=== PATIENT | male | born 1990 | race Caucasian/White ===

== ENCOUNTER 2023-08-30 14:03 | Inpatient (IN) | payer OTHER ==
[~2023-08-30] VITALS: Ht 182.9 cm; Wt 113.7 kg
[2023-08-30 14:45] LABS: BASOPHILS ABSOLUTE AUTO 0.05 K/mm3 (0.00-0.23); BASOPHILS PERCENT AUTO 0 % (0-2); EOSINOPHILS ABSOLUTE AUTO 0.35 K/mm3 (0.00-0.68); EOSINOPHILS PERCENT AUTO 2 % (0-6); Hematocrit 22.6 % (37.0-53.0); Hemoglobin 7.8 g/dL (13.5-17.5); IMMATURE GRAN ABSOLUTE AUTO 0.22 K/mm3 (0.00-0.10); IMMATURE GRAN PERCENT AUTO 1 % (0-1); LYMPHOCYTES ABSOLUTE AUTO 2.68 K/mm3 (0.84-5.20); LYMPHOCYTES PERCENT AUTO 15 % (21-46); MONOCYTES ABSOLUTE AUTO 1.54 K/mm3 (0.16-1.47); MONOCYTES PERCENT AUTO 9 % (4-13); Mean Corpuscular HGB 37.3 pg (26.0-34.0); Mean Corpuscular HGB Conc 34.5 g/dL (31.5-36.5); Mean Corpuscular Volume 108 fL (80-100); Mean Platelet Volume 9.3 fL (9.1-12.4); NEUTROPHILS ABSOLUTE AUTO 13.26 K/mm3 (1.96-9.15); NEUTROPHILS PERCENT AUTO 73 % (41-73); NRBC ABSOLUTE 0.02 K/mm3 (0.00-0.02); NRBC Auto 0.1 /100 WBC (0.0-0.2); Platelet Count 156 K/mm3 (150-400); RDW Coefficient Variation 16.2 % (11.7-14.2); RDW Standard Deviation 65.1 fL (35.1-46.3); Red Blood Cell Count 2.09 M/mm3 (4.30-5.90)
[2023-08-30 15:10] LABS: Albumin, Blood 1.9 g/dL (3.4-5.0); Albumin/Globulin Ratio 0.4 (0.8-1.8); Bilirubin, Direct 11.8 mg/dL (0.0-0.3); Bilirubin, Indirect 7.4 mg/dL (0.1-0.7); Bilirubin, Total 19.2 mg/dL (0.1-1.0); Calcium, Blood 7.6 mg/dL (8.5-10.1); Creatinine, Blood 0.63 mg/dL (0.60-1.20); Globulin, Blood 4.6 g/dL (2.2-4.0); Magnesium, Blood 2.4 mg/dL (1.6-2.4); Potassium, Blood 2.7 mmol/L (3.5-5.5); Total Protein, Blood 6.5 g/dL (6.4-8.2)
[2023-08-30 15:19] LABS: International Normalized Ratio 1.73; Prothrombin Time Results 17.6 Sec (9.7-11.5)
[2023-08-30 18:23] VITALS: BP 122/67
--- NOTE | 2023-08-30 19:03 | NUR ---
ADMISSION NOTE: PATIENT ARRIVES TO ROOM AT 1805 FROM ER FOR DX'S OF ALCOHOLIC HEPATITIS. PATIENT A/OX4, ANSWER TO QUESTIONS APPROPRIATELY, PLEASANT AND COOPERATIVE c CARE PROVIDED. PATIENT ORIENTATED TO ROOM AND CALL SYSTEM. ADMISSION, MEDRIC AND 2 RN SKIN ASSESSMENT COMPLETED. PATIENT APPEARS JAUNDICED IN SKIN AND SCLERA. PATIENT ABDOMEN IS VERY DISTENDED, FIRM, HYPOACTIVE BT TO AUSCULTATION AND REPORTS TENDERNESS/PAIN ON MILD PALPATION. PATIENT REPORTS HE HARDLY URINATE AND IF HE DOES VERY MINIMAL AND YELLOW TO ORANGE COLOR. NOTED PLUS 2 EDEMA TO HIPS AND PLUS 3 PITTING EDEMA TO BLE'S/FEET. PATIENT ON HEPATIC DIET. PATIENT DENIES CP/PRESSURE, N/V AND DIZZINESS. REPORTS SOB c REPOSITIONING AND AMBULATIONS. VITAL SIGNS REVIEWED. PIV TO R FOREARM INFUSING POTASSIUM CHLORIDE. CALL LIGHT IN REACH.
[2023-08-30 21:12] VITALS: BP 113/67
[2023-08-30 23:36] LABS: BASOPHILS ABSOLUTE AUTO 0.04 K/mm3 (0.00-0.23); BASOPHILS PERCENT AUTO 0 % (0-2); EOSINOPHILS ABSOLUTE AUTO 0.43 K/mm3 (0.00-0.68); EOSINOPHILS PERCENT AUTO 2 % (0-6); Hematocrit 20.3 % (37.0-53.0); IMMATURE GRAN ABSOLUTE AUTO 0.28 K/mm3 (0.00-0.10); IMMATURE GRAN PERCENT AUTO 1 % (0-1); LYMPHOCYTES ABSOLUTE AUTO 3.22 K/mm3 (0.84-5.20); LYMPHOCYTES PERCENT AUTO 16 % (21-46); MONOCYTES ABSOLUTE AUTO 2.01 K/mm3 (0.16-1.47); MONOCYTES PERCENT AUTO 10 % (4-13); Mean Corpuscular HGB 37.4 pg (26.0-34.0); Mean Corpuscular HGB Conc 34.5 g/dL (31.5-36.5); Mean Corpuscular Volume 109 fL (80-100); Mean Platelet Volume 9.7 fL (9.1-12.4); NEUTROPHILS ABSOLUTE AUTO 13.85 K/mm3 (1.96-9.15); NEUTROPHILS PERCENT AUTO 70 % (41-73); NRBC ABSOLUTE 0.02 K/mm3 (0.00-0.02); NRBC Auto 0.1 /100 WBC (0.0-0.2); Platelet Count 150 K/mm3 (150-400); RDW Coefficient Variation 16.6 % (11.7-14.2); RDW Standard Deviation 65.7 fL (35.1-46.3); Red Blood Cell Count 1.87 M/mm3 (4.30-5.90); White Blood Cell Count 19.83 K/mm3 (4.00-11.30)
[2023-08-31] VITALS (24 sets, daily range): BP systolic 99–118; BP diastolic 41–88
[2023-08-31 01:23] LABS: Source, Urine Clean Catch
[2023-08-31 01:30] LABS: Appearance, Urine Turbid (Clear); Bilirubin, Urine 3+ (Neg); Blood, Urine 2+ (Neg); Color, Urine Amber (P-Yellow); Glucose Qualitative, Urine Neg (Neg); Ketones, Urine 1+ (Neg); Leukocyte Esterase, Urine Neg (Neg); Nitrite, Urine Neg (Neg); Protein, Urine 2+ (Neg); Urobilinogen, Urine 4+ (Normal)
[2023-08-31 01:40] LABS: Bacteria Few /hpf; Squamous Epithelial Cells Few /hpf (Few); White Blood Cells, Urine 0-2 /hpf (0-5)
[2023-08-31 01:41] LABS: Amorphous Mod (0-Heavy); Other Crystals Few /hpf
[2023-08-31 01:44] LABS: U Amphetamine Screen Not Detected; U Barbituate Screen Not Detected; U Benzodiazapine Screen Not Detected; U Buprenorphine Screen Not Detected; U Cannabinoids Screen DETECTED; U Cocaine Screen Not Detected; U Methadone Screen Not Detected; U Methamphetamine Screen Not Detected; U Opiates Screen Not Detected; U Oxycodone Screen Not Detected; U Phencyclidine Screen Not Detected
--- NOTE | 2023-08-31 05:43 | NUR ---
SHIFT SUMMARY *SHAHNAZ* IS ALERT AND FULLY ORIENTED, PLEASANT AND COOPERATIVE WITH CARE. PT IS ABLE TO AMBULATE WITH ONLY SUPERVISION, HE DENIES C/P PRESSURE AND SOB EVERY TIME ASKED THIS SHIFT. PT IS JAUNDICED. PT HAD A BOWEL MOVEMENT WITH COPIUS BRIGHT RED BLOOD, HE CLAIMS THIS IS THE FIRST BLOODY STOOL HE HAS HAD. PTS HGB WAS AT 7.8 FROM DAYSHIFT LABS. HOSPITALIST CONTACTED, ORDER RECIEVED FOR 1U PRBC AND CBC, HGB HAD DROPPED TO 7.0, CONSENT TO RECIEVE BLOOD SIGNED BY PT, RBCS INFUSED W/O ISSUE, VSS REMAIN STABLE. PT RESTING IN BED AT A LOW POSITION WITH THE CALL LIGHT IN REACH.
[2023-08-31 07:22] LABS: Hemoglobin 8.2 g/dL (13.5-17.5); Mean Corpuscular HGB 35.8 pg (26.0-34.0); Mean Corpuscular HGB Conc 34.2 g/dL (31.5-36.5); Mean Corpuscular Volume 105 fL (80-100); Mean Platelet Volume 9.4 fL (9.1-12.4); NRBC ABSOLUTE 0.02 K/mm3 (0.00-0.02); NRBC Auto 0.1 /100 WBC (0.0-0.2); Platelet Count 150 K/mm3 (150-400); RDW Coefficient Variation 19.7 % (11.7-14.2); RDW Standard Deviation 73.4 fL (35.1-46.3); Red Blood Cell Count 2.29 M/mm3 (4.30-5.90); White Blood Cell Count 20.38 K/mm3 (4.00-11.30)
--- NOTE | 2023-08-31 07:50 | NUR ---
BLOODY STOOLS PT HAD SECOND BLOODY STOOL DURING END OF SHIFT REPORT, HE STATES IT WAS MORE BLOOD THAN THE FIRST BM OF THE SHIFT BUT FLUSHED IT BEFORE IT COULD BE SEEN. MORNING HGB UP TO 8.2 FROM 7.0 AFTER RECIEVING PRBC.
[2023-08-31 08:04] LABS: Albumin, Blood 1.8 g/dL (3.4-5.0); Albumin/Globulin Ratio 0.4 (0.8-1.8); Bilirubin, Total 19.7 mg/dL (0.1-1.0); Bun/Creatinine Ratio 21.2 (12.0-20.0); Calcium, Blood 7.4 mg/dL (8.5-10.1); Creatinine, Blood 0.71 mg/dL (0.60-1.20); Globulin, Blood 4.4 g/dL (2.2-4.0); Magnesium, Blood 2.4 mg/dL (1.6-2.4); Percent Saturation 92.1 % (20.0-50.0); Phosphorus, Blood 3.4 mg/dL (2.5-4.9); Potassium, Blood 3.4 mmol/L (3.5-5.5); Total Protein, Blood 6.2 g/dL (6.4-8.2)
[2023-08-31 12:35] LABS: Automated BF WBC Count 0.166 K/mm3 (0-999)
[2023-08-31 12:42] LABS: Body Fluid WBC Count 166 /mm3 (0-999)
[2023-08-31 12:58] LABS: Albumin, Body Fluid 0.5 g/dL
[2023-08-31 13:21] LABS: RBC Count, Body Fluid 72 /mm3 (0-0)
--- NOTE | 2023-08-31 13:21 | NUR ---
SHAHNAZ ARRIVES FROM MEDICAL FLOOR VIA WHEELCHAIR, IV POLE WITH PANTOPRAZOLE AND OCTREOTIDE INFUSING. ORDERS FOR FURTHER IV MEDICATIONS, INCLUDING FOLIC ACID, ALBUMIN AND ROCEPHIN WITHOUT ACCESS. WILL LOOK FOR ACCESS AND ATTEMPT TO START ADDITIONAL MEDS. PT IS JAUNDICED, EDEMATOUS TO KNEES BILATERALLY STATES IT HAS BEEN CHRONIC FOR LAST COUPLE YEARS. PT STATES ABDOMEN IS BETTER POST PARACEN- TESIS. BREATHING EVEN, UNLABORED, LUNGS CLEAR, RA. BP STABLE, HEART RATE 90S. PT IS NPO AND UNHAPPY ABOUT THAT. ABLE TO MOVE ALL EXTREMITIES AND REPOSITION COMFORTABLE. STATES N/T ABOUT THE LOWER EXTREMITIES.
[2023-08-31 13:22] LABS: Appearance, Body Fluid Clear (Clear); Color, Body Fluid Yellow (None-Yellow)
[2023-08-31 13:29] LABS: Total Cell Count, Body Fluid 100
[2023-08-31 13:48] LABS: Hematocrit 20.9 % (37.0-53.0); Hemoglobin 7.5 g/dL (13.5-17.5)
--- NOTE | 2023-08-31 16:03 | NUR ---
PT TRANSFERRED TO ICU6 AT 1300, WHEELCHAIR TRANSFER, PT STANDS AND MOVES SBA. HAS NO SYMPTOMS OF DIZZINESS OR WEAKNESS. HAD BRIGHT RED BLOOD IN STOOLS STARTED PM 08/30 2000, 2 MORE AT 08/31 0600, 0900 BRIGHT RED WITH LITTLE FORMED STOOL. STARTED PROTONIX GTT AFTER INITIAL BOLUS, STARTED OCTREOTIDE GTT AFTER BOLUS, GAVE VIT K ORALLY ALL BEFORE TX TO ICU. GAVE REPORT TO [employer]ICAL E[employer]ECTS LINE UP PERSON.
--- NOTE | 2023-08-31 18:06 | NUR ---
SHAHNAZ WAS BROUGHT DOWN FROM MEDICAL FLOOR THIS AFTERNOON FOR CLOSER OBSERVATION REGARDING LGIB. HE HAS NOT HAD ANY STOOL, NO URINE OUTPUT, AND CONTINUES ON OCTREOTIDE AND PANTOPRAZOLE. EFFORTS WERE MADE BY ORGAN PIPE FINISHER TO SEE IF ANY BED WAS AVAILABLE FOR GIB TRANSFER. NOT SUCCESSFUL. PT CONTINUES TO ASK FOR SOME- THING TO EAT/DRINK. HE WAS GIVEN ORAL SWABS MUCH TO HIS DISLIKING. HE IS WEAR- ING HIS SCD'S, EDEMA CONTINUES TO BILATERAL LOWER EXTREMITIES, WHICH PATIENT STATED THAT HAS BEEN ONGOING FOR A COUPLE OF YEARS. HIS ABDOMEN REMAINS SOFT AND LESS TENDER THAN THIS AM, NO S/SX OF BLEEDING FROM THE PUNCTURE SITE FOR THE PARACENTESIS. VITALS HAVE REMAINED STABLE. NO EVIDENCE OF BLEEDING.
[2023-08-31 18:50] LABS: Hematocrit 18.8 % (37.0-53.0); Hemoglobin 6.7 g/dL (13.5-17.5)
--- NOTE | 2023-08-31 19:49 | NUR ---
ASSUMPTION OF CARE NOTE THIS RN ASSUMED CARE AT APPROX 1915. UPON ENTERING ROOM, PATIENT REPORTING NEEDING TO USE RESTROOM. PATIENT TRANSFERRED TO TOILET WITH 1 PERSON ASSIST FOR CORD/DEVICE MANAGEMENT. VSS. BP SOFT, SBP 105. MAP OF 65. ON ROOM AIR, SATS >90%. PATIENT REPORTING DULL LOWER ABDOMINAL PAIN. PATIENT INSTRUCTED TO PULL CORD WHEN FINISHED USING RESTROOM. PCT NOTIFIED THIS RN, THAT THE PATIENT HAD PASSED A BRIGHT RED, LIQUID BOWEL MOVEMENT. LEFT IN TOILET FOR ASSESSMENT, CONFIRMED. PATIENT RESTING IN BED. NO SIGNS OF DISTRESS NOTED, RESPIRATIONS EVEN. JERARDO DANIEL TO CALL . RECEIVED ORDER TO ADMINISTER 2U PRBC's AND RECHECK LABS AT 0100.
--- NOTE | 2023-08-31 20:00 | NUR ---
UPDATE CALL RECIEVED FROM [facility] WITH POSSIBLE BED FOR PATIENT. THIS RN UPDATED HOSPITALIST SILVANA WITH POSSIBLE BED. PER ROSALINDA, D/T GI COVERAGE 09/01/23, PATIENT DOES NOT REQUIRE TRANSFER AT THIS TIME. ORDER RECIEVED FOR GI CONSULT FOR AM. SENIOR MICROSTRATEGY DEVELOPER AWARE.
--- NOTE | 2023-08-31 22:01 | NUR ---
UPDATE FIRST UNIT OF PRBC's STARTED AT APPROX 2145. PATIENT TOLERATING WELL. IS CURRENTLY RESTING, EYES CLOSED, RESPIRATIONS EVEN. NO SIGNS OF DISTRESS NOTED. BP REMAINS SOFT, SBP 90's-110's. MAP >60 AT THIS TIME. REMAINS ON ROOM AIR, SATS >90%. WILL CONTINUE TO MONITOR. CALL LIGHT IN REACH.
[2023-09-01] VITALS (35 sets, daily range): BP systolic 80–119; BP diastolic 46–91
--- NOTE | 2023-09-01 01:14 | NUR ---
UPDATE SECOND UNIT OF PRBC's STARTED AT 0110. PATIENT SLEPT THROUGHOUT FIRST UNIT, TOLERATED WELL. RESPIRATIONS EVEN, NO SIGNS OF DISTRESS NOTED. VS REMAIN STABLE. BP IMPROVING, CURRENT SBP 100's-110's. CALL LIGHT IN REACH.
--- NOTE | 2023-09-01 05:14 | NUR ---
SHIFT SUMMARY NO ACUTE CHANGES SINCE PREVIOUS NOTES. TWO UNITS OF PRBCs INFUSED. PATIENT TOLERATED WELL. LABS DRAWN FROM [facility] AT APPROX 0330, AWAITING RESULTS. PATIENT REMAINS ALERT AND ORIENTED X4. SLEPT THROUGHOUT SHIFT, EASILY AROUSABLE TO VERBAL STIMULI. BP SOFT, SBP 100's-110's. MAP REMAINS >60. REMAINS ON ROOM AIR, SATS >90%. IS A STAND BY ASSIST IN ROOM WITH MOBILITY. WAS ABLE TO VOID 250ML OUT, DARK EVANGELIST COLOR NOTED. NO FURTHER BM's SINCE ASSUMPTION OF CARE. CONTINUES TO REPORT LOWER ABDOMINAL PAIN. REPORTS FLATULENCE. SEE MARÍA RN's NOTE IN ATTEMPTING TO CONSULT GI. OCREOTIDE GTT AND PROTONIX GTT INFUSING PER EMAR. CALL LIGHT IN REACH. WILL REPORT TO ONCKARLEY RN.
--- NOTE | 2023-09-01 05:14 | NUR ---
UPDATE ATTEMPT MADE TO PLACE CONSULT FOR GI. CALL PLACED TO DOCTOR'S LINE. PER DOCTOR'S LINE, NO GI AVAILABLE UNTIL LATER IN THE DAY AND THIS RN WAS RECOMMENDED TO CALL OFFICE AFTER 0800 FOR POSSIBLE CONSULT EARLIER. WILL REPORT THIS TO ONCOMING RN.
[2023-09-01 05:16] LABS: International Normalized Ratio 1.93; Prothrombin Time Results 19.5 Sec (9.7-11.5)
[2023-09-01 05:40] LABS: Albumin, Blood 1.8 g/dL (3.4-5.0); Albumin/Globulin Ratio 0.5 (0.8-1.8); Bilirubin, Total 21.7 mg/dL (0.1-1.0); Bun/Creatinine Ratio 15.7 (12.0-20.0); Calcium, Blood 7.4 mg/dL (8.5-10.1); Creatinine, Blood 1.08 mg/dL (0.60-1.20); Globulin, Blood 3.3 g/dL (2.2-4.0); Potassium, Blood 3.7 mmol/L (3.5-5.5); Total Protein, Blood 5.1 g/dL (6.4-8.2)
[2023-09-01 07:02] LABS: Mean Platelet Volume 9.4 fL (9.1-12.4); Platelet Count 111 K/mm3 (150-400); White Blood Cell Count 18.16 K/mm3 (4.00-11.30)
[2023-09-01 10:56] LABS: Hemoglobin 8.5 g/dL (13.5-17.5)
--- NOTE | 2023-09-01 18:09 | NUR ---
SHIFT SUMMARY PT ALERT AND ORIENTED, PLEASANT AND COOPERATIVE WITH CARE. PT TOLERATING CLEAR LIQUIDS. C/O ABD AND BACK PAIN T/O THE DAY, MEDICATED X 2 WITH PRN FENTANYL WITH ADEQUATE RELIEF. UP TO CHAIR WITH SBA, TOLERATED STANDING AND WALKING WELL, NO DIZZINESS. HAD ONE BRIGHT RED STOOL THIS AM, NONE SINCE, DR STAHL AWARE. THIS EVENING PT C/O PERSISTENT HAND CRAMPING, HOSPITALIST NOTIFED, PENDING ORDERS.
[2023-09-01 19:12] LABS: Hemoglobin 7.4 g/dL (13.5-17.5)
[2023-09-01 19:17] LABS: Hematocrit 21.3 % (37.0-53.0)
[2023-09-01 19:37] LABS: Albumin, Blood 1.7 g/dL (3.4-5.0); Anion Gap 8 mmol/L (6-16); Blood Urea Nitrogen 20 mg/dL (8-24); Bun/Creatinine Ratio 17.1 (12.0-20.0); CO2, Blood 28 mmol/L (21-32); Calcium, Blood 7.4 mg/dL (8.5-10.1); Chloride, Blood 87 mmol/L (98-108); Creatinine, Blood 1.17 mg/dL (0.60-1.20); Glomerular Filtration Rate 84 (60-); Glucose, Blood 120 mg/dL (70-99); Magnesium, Blood 2.3 mg/dL (1.6-2.4); Potassium, Blood 3.4 mmol/L (3.5-5.5); Sodium, Blood 123 mmol/L (136-145)
--- NOTE | 2023-09-01 20:33 | NUR ---
PT ALERT AND ORIENTED X 4, COOPERATIVE WITH CARE, ABLE TO MAKE NEEDS KNOWN, AND TALKATIVE. PT ON RA AND MAINAINING 02 SATURATION ABOVE 92%, PT DENIES SOB. HEAR SR/ST 90'S-100'S, PT DENIES CHEST PAIN/PRESSURE, BP 111/52 & MAP OF 69. PT HAS NOT URINATED OR HAD A BOWEL MOVEMENT DURING SHIFT SO FAR, DAY SHIFT REPORTED BLOODY BOWEL MOVMENT TODAY. PT REPORTS PASSING GAS AND RUQ ABD PAIN. PT HAS 4+ PUTTING EDEMA IN BLE. HE REPORTS NUMBNESS/TINGLING TO BILATERAL UPPER THIGHS. SKIN IS JAUNDICE THROUGHOUT THE BODY. POWERGLIDE TO R UPPER ARM INFUSING PER EMAR. IV TO L FA IS INFUSING PER EMAR. IV TO L AC IS PATENT, FLUSHED AND SALINE LOCKED. PT REPORTS INTERMITTENT CRAMPING OF HIS STOMACH. DR. STAHL IN TO SPEAK WITH PT NOW. PT LAYING IN BED WITH TV AND LIGHTS ON. CALL LIGHT WITHIN REACH.
[2023-09-02] VITALS (15 sets, daily range): BP systolic 92–106; BP diastolic 42–55
[2023-09-02 00:09] LABS: HBSAG SCREEN Negative (Negative); HCV AB Non Reactive (Non Reactive); HEP A AB, IGM Negative (Negative); HEP B CORE AB, IGM Negative (Negative)
[2023-09-02 03:54] LABS: Hemoglobin 7.1 g/dL (13.5-17.5); Mean Platelet Volume 9.9 fL (9.1-12.4); Platelet Count 96 K/mm3 (150-400); White Blood Cell Count 16.73 K/mm3 (4.00-11.30)
[2023-09-02 04:25] LABS: Albumin, Blood 1.6 g/dL (3.4-5.0); Albumin/Globulin Ratio 0.5 (0.8-1.8); Bilirubin, Total 22.4 mg/dL (0.1-1.0); Bun/Creatinine Ratio 14.8 (12.0-20.0); Calcium, Blood 7.5 mg/dL (8.5-10.1); Creatinine, Blood 1.49 mg/dL (0.60-1.20); Globulin, Blood 3.1 g/dL (2.2-4.0); Potassium, Blood 3.5 mmol/L (3.5-5.5); Total Protein, Blood 4.7 g/dL (6.4-8.2)
--- NOTE | 2023-09-02 05:58 | NUR ---
SHIFT SUMMARY PT CONTINUES TO BE ALERT AND ORIENTED X 4, COOPERATIVE [facility] CARE AND ABLE TO MAKE NEEDS KNOWN. PT ON RA AND MAINTAINING 02 SATURATION ABOVE 92%, DENIES SOB. PT'S HR SR 90'S, DENIES CHEST PAIN/PRESSURE, SOFT BP'S WITH MAP AROUND 60-65 MD JORDY NOTIFIED & ORDERS PLACED, MEDICATED PER EMAR. PT CONTINUES TO HAVE RUQ PAIN, MEDICATED PER EMAR. OF NOW, PT IS DUE TO HAVE COLONOSCOPY LATER TODAY. PT URINATED VERY SMALL AMOUNT OF VERY DARK URINE DURING SHIFT, AND NO BOWEL MOVEMENT. IV TO L AC STILL PATENT, FLUSHED AND SALINE LOCKED. IV TO L FA IS STILL INFUSING PER EMAR AND POWERGLIDE TO R UPPER ARM ARE STILL INFUSING PER EMAR. PT IS STILL JAUNDICE THROUGHOUT, 4+ PITTING EDEMA BLE, AND DISTENDED ABDOMEN. PT SLEPT THE MAJORITY OF THE NIGHT. HE IS RESTING IN BED AND CALL LIGHT WITHIN REACH.
[2023-09-02 12:07] LABS: Hemoglobin 7.4 g/dL (13.5-17.5)
[2023-09-02 12:16] LABS: Hematocrit 21.2 % (37.0-53.0)
[2023-09-02 12:36] LABS: Bun/Creatinine Ratio 13.1 (12.0-20.0); Calcium, Blood 7.7 mg/dL (8.5-10.1); Creatinine, Blood 1.75 mg/dL (0.60-1.20); Potassium, Blood 3.5 mmol/L (3.5-5.5)
--- NOTE | 2023-09-02 14:57 | NUR ---
Telephone report from JERARDO Graff. Anticipate pt arrival to PCU 19 shortly.
--- NOTE | 2023-09-02 15:20 | NUR ---
TRANSFER TO U PT TAKEN TO U 19 VIA WHEELCHAIR. ALL PT MEDS AND BELONGINGS SENT WITH PT.
--- NOTE | 2023-09-02 15:30 | NUR ---
Pt arrived from ICU to PCU 19. Sinus tachycardia 97-101 bpm while sitting on side of bed and ambulating to the bathroom to have BM. He is finishing his Goleytely as best as he can.
--- NOTE | 2023-09-02 16:14 | NUR ---
since patient's arrival to PCU he has been encouraged to drink up his Golytely. At this time he says "I've been chugging it...a little bit". He has had about 300 cc over the past hour. Last BM was around 1545, no solid bits, only bright red stool.
--- NOTE | 2023-09-02 16:47 | NUR ---
Pt is still working on the [employer] drink. Stool is still not clear. Dr. Sifuentes was here to see the patient.
--- NOTE | 2023-09-02 17:24 | NUR ---
Ambulatory to bathroom with IV pole and protonix gtt infusing left wrist. Pt is cheerful. explained to him that he will need to finish the [employer], and if his stool is not clear , another one will be prescribed for him this evening for overnight bowel prep for colonscopy in the morning. He is agreeable to this, but continues to really drag his feet on finishing the [employer].
[2023-09-03] VITALS (38 sets, daily range): BP systolic 63–159; BP diastolic 37–138
[2023-09-03 04:33] LABS: Albumin, Blood 1.8 g/dL (3.4-5.0); Anion Gap 8 mmol/L (6-16); Blood Urea Nitrogen 25 mg/dL (8-24); Bun/Creatinine Ratio 10.5 (12.0-20.0); CO2, Blood 29 mmol/L (21-32); Calcium, Blood 7.5 mg/dL (8.5-10.1); Chloride, Blood 89 mmol/L (98-108); Creatinine, Blood 2.37 mg/dL (0.60-1.20); Glomerular Filtration Rate 36 (60-); Glucose, Blood 87 mg/dL (70-99); Phosphorus, Blood 5.3 mg/dL (2.5-4.9); Potassium, Blood 3.1 mmol/L (3.5-5.5); Sodium, Blood 126 mmol/L (136-145)
--- NOTE | 2023-09-03 05:22 | NUR ---
SHIFT SUMMARY PT A&Ox4, CALLS AND COMMUNICATES NEEDS APPROPRIATELY. BP STABLE, SINUS 80's, DENIES CP/PRESSURE. SpO2> 92% RA, DENIES SOB. IND IN ROOM. CONTINENT OF URINE AND BOWEL. PT WITH LIQUID, YELLOW/RED BMs THROUGHOUT SHIFT. PT FINISHED GOLYTELY AT APPROXIMATELY 0300, HAS HAD VERY SMALL AMOUNT OF ICE CHIPS SINCE. STOOLS REMAIN UNCHANGED. PROTONIX gtt INFUSING PER EMAR. NO OTHER EVENTS, WILL REPORT TO ONCOMING RN.
[2023-09-03 06:51] LABS: BASOPHILS ABSOLUTE AUTO 0.03 K/mm3 (0.00-0.23); BASOPHILS PERCENT AUTO 0 % (0-2); EOSINOPHILS ABSOLUTE AUTO 0.21 K/mm3 (0.00-0.68); EOSINOPHILS PERCENT AUTO 2 % (0-6); IMMATURE GRAN PERCENT AUTO 1 % (0-1); LYMPHOCYTES ABSOLUTE AUTO 1.38 K/mm3 (0.84-5.20); LYMPHOCYTES PERCENT AUTO 10 % (21-46); MONOCYTES ABSOLUTE AUTO 0.99 K/mm3 (0.16-1.47); MONOCYTES PERCENT AUTO 7 % (4-13); Mean Platelet Volume 9.6 fL (9.1-12.4); NEUTROPHILS ABSOLUTE AUTO 11.03 K/mm3 (1.96-9.15); NEUTROPHILS PERCENT AUTO 80 % (41-73); Platelet Count 84 K/mm3 (150-400); White Blood Cell Count 13.74 K/mm3 (4.00-11.30)
[2023-09-03 06:52] LABS: Hemoglobin 6.3 g/dL (13.5-17.5)
[2023-09-03 13:20] LABS: Hematocrit 20.1 % (37.0-53.0); Hemoglobin 7.2 g/dL (13.5-17.5)
--- NOTE | 2023-09-03 13:47 | NUR ---
History, Chart, Medications and Allergies reviewed before start of procedure.Lungs diminished in the bases.Sats >90% on RA. MAP 64-pt on Protamine Patient states colon prep results clear. Patient confirms NPO status and agrees with scheduled surgery. Skin and sclera jaundiced-lower extremities with 2+ edema. Pt able to transfer from wheelchair to gurney without SOB.
--- NOTE | 2023-09-03 15:30 | NUR ---
09/03/23 1530 Gela Henley 1355: HISTORY, CHART, MEDICATIONS AND ALLERGIES REVIEWED BEFORE START OF PROCEDURE. PATIENT CONFIRMS NPO STATUS AND AGREES WITH SCHEDULED PROCEDURE. 3-LEAD EKG REVIEWED WITH PHYSICIAN PRIOR TO START OF PROCEDURE. MONITOR INTACT WITH CONTINUOUS PULSE OXIMETRY,CAPNOGRAPHY, 3-LEAD EKG, INTERMITTENT BP. SUPPLEMENTAL O2 TO BE TITRATED THROUGHOUT PROCEDURE TO MAINTAIN O2 SATURATION ABOVE 90%. PATIENT DETERMINED TO BE ASA APPROPRIATE FOR PROPOFOL SEDATION PRIOR TO START OF PROCEDURE BY . DR. MORENO REVIEWED CHART AND OK FOR RN SEDATION.
--- NOTE | 2023-09-03 18:54 | NUR ---
SHIFT SUMMARY S/P LOWER GI BLEED, A/OX4, NPO T/O MOST OF THE SHIFT BUT HAS BEEN ABLE TO TOLERATE PO FOLLOWING COLONOSCOPY TODAY. PT WAS HYPOTENSIVE THIS MORNING JUST AFTER STARTING ORDERED UNIT OF BLOOD, PT DENIED FEELING DIZZY OR LIGHT HEADED BUT HE DID REPORT SUDDENLY FEELING VERY TIRED/FATIGUED, DISCUSSED WITH MD AND GAVE HIM HIS ORDERED MIDODRINE WHICH HAD INITIALLY BEEN HELD DUE TO NPO FOR PROCEEDURE, ALSO INCREASED BLOOD INFUSION RATE AND BP INCREASED (SEE VITALS). PT CONTINUES TO BE JAUNDICED AND HAS SIGNIFICANT EDEMA BLE HIPS AND ABD WHICH WAS PRESENT AT START OF SHIFT TODAY. NO OTHER EVENTS THIS SHIFT, CALL LIGHT IN REACH.
[2023-09-04] VITALS (66 sets, daily range): BP systolic 74–126; BP diastolic 42–90
--- NOTE | 2023-09-04 | NUR ---
NOTIFIED PHYSICIAN NOTIFIFED PHYSICIAN OF SOFT BP WITH MAPS 55-60 DESPITE HAVING RECIEVED 15mg OF MIDODRINE AT APPROXIMATELY 1840 AND 5Og OF ALBUMIN BETWEEN [id number]. PT ASYMPTOMATIC, VISITING WITH FAMILY. ORDERS PLACED.
--- NOTE | 2023-09-04 02:00 | NUR ---
UPDATE PHYSICIAN CALL TO UPDATE PHSYICIAN ABOUT HOW PT RESPONDED TO ORDERED INTERVENTIONS FOR SOFT BP. BP STILL 80's/40's WITH MAPS 55-60. PT SLIGHTLY MORE LETHARGIC. DISCUSSED VERY LOW URINE OUTPUT. PLAN TO DRAW MORNING LABS EARLY AND THIS RN WILL UPDATE PHYSICIAN WITH RESULTS.
[2023-09-04 02:52] LABS: BASOPHILS ABSOLUTE AUTO 0.04 K/mm3 (0.00-0.23); BASOPHILS PERCENT AUTO 0 % (0-2); EOSINOPHILS ABSOLUTE AUTO 0.22 K/mm3 (0.00-0.68); EOSINOPHILS PERCENT AUTO 2 % (0-6); Hemoglobin 6.6 g/dL (13.5-17.5); IMMATURE GRAN ABSOLUTE AUTO 0.07 K/mm3 (0.00-0.10); IMMATURE GRAN PERCENT AUTO 1 % (0-1); LYMPHOCYTES ABSOLUTE AUTO 1.72 K/mm3 (0.84-5.20); LYMPHOCYTES PERCENT AUTO 15 % (21-46); MONOCYTES ABSOLUTE AUTO 1.14 K/mm3 (0.16-1.47); MONOCYTES PERCENT AUTO 10 % (4-13); Mean Platelet Volume 9.9 fL (9.1-12.4); NEUTROPHILS ABSOLUTE AUTO 8.27 K/mm3 (1.96-9.15); NEUTROPHILS PERCENT AUTO 72 % (41-73); Platelet Count 81 K/mm3 (150-400); White Blood Cell Count 11.46 K/mm3 (4.00-11.30)
[2023-09-04 03:09] LABS: Albumin, Blood 2.6 g/dL (3.4-5.0); Anion Gap 12 mmol/L (6-16); Blood Urea Nitrogen 30 mg/dL (8-24); Bun/Creatinine Ratio 9.3 (12.0-20.0); CO2, Blood 26 mmol/L (21-32); Calcium, Blood 7.9 mg/dL (8.5-10.1); Chloride, Blood 90 mmol/L (98-108); Creatinine, Blood 3.22 mg/dL (0.60-1.20); Glomerular Filtration Rate 25 (60-); Glucose, Blood 109 mg/dL (70-99); Sodium, Blood 128 mmol/L (136-145)
[2023-09-04 03:17] LABS: Hematocrit 18.7 % (37.0-53.0); Mean Corpuscular HGB 34.2 pg (26.0-34.0); Mean Corpuscular HGB Conc 35.3 g/dL (31.5-36.5); Mean Corpuscular Volume 97 fL (80-100); Red Blood Cell Count 1.93 M/mm3 (4.30-5.90)
--- NOTE | 2023-09-04 04:20 | NUR ---
UPDATE PHYSICIAN CALL TO UPDATE PHYSICIAN WITH MORNING LAB RESULTS. NOTIFIED OF BP REMAINING 80's/40's MAPS 55-60, PT RESPONDS TO VERBAL STIMULI AND IS ALERT BUT BECOMING MORE LETHARGIC AND HAVING TROUBLE STAYING AWAKE DURING CONVERSATION; THOUGH PT HASN'T BEEN ABLE TO SLEEP MUCH THROUGHOUT NIGHT WITH THIS RN AND OTHER STAFF MONITORING HIM CLOSELY. PHYSICIAN TO REVIEW CHART, AWAITING ORDERS AT THIS TIME.
--- NOTE | 2023-09-04 05:00 | NUR ---
PHYSICIAN UPDATE PHYSICIAN CALLED TO UPDATE THIS RN WITH PLAN OF CARE. ORDERS PLACED TO TRANSFER TO ICU.
--- NOTE | 2023-09-04 05:52 | NUR ---
SHIFT SUMMARY / TRANSFER TO ICU 14 SEE PREVIOUS NOTES. PT A&Ox4, CALLS AND COMMUNICATES NEEDS APPROPRIATELY. BP SOFT, ORDERS PLACED. SINUS 80's, DENIES CP/PRESSURE. SpO2> 92% RA, DENIES SOB. PT VERY JAUNDICE AND EDEMATOUS. R LATERAL CHEST WALL/ABD PARACENTESIS SITE LEAKING SEROUS FLUID. PT ABLE TO VOID 50mLs OF TEA COLORED URINE, POST VOID BLADDER SCAN SHOWED 100-500mLs OF URINE D/T SEVERE ASCITES. STRAIGHT CATH HAD 0mLs OF OUTPUT, PHYSICIAN NOTIFIED. AT APPROXIMATELY 0525, PT TRANSFERED TO ICU 14 VIA HOSPITAL BED. PT SLID OVER FROM PCU BED TO ICU BED BY 4 CLINICAL STAFF MEMBERS. REPORT GIVEN TO AUTO CLUB TRAVEL COUNSELOR AT BEDSIDE.
--- NOTE | 2023-09-04 06:00 | NUR ---
PT TRANSFERRED TO ROOM ICU 14 AT 0525. PT SLIDE TRANSFERRED TO BED. PT VOICES NO COMPLAINTS OF N/V. NO S/S BLEEDING AT THIS TIME. LEVOPHED STARTED WITH INITIAL RATE OF 2 MCG'S/MIN. HAVE INCREASED TO 3 MCG'S/MIN. PT JAUNDICED IN APPEARANCE. ABDOMEN DISTENDED. SOMEWHAT TENDER WITH PERCUSSION. HAVE BEGUN BLOOD TRANSFUSION. PT VOICES UNDERSTANDING OF S/S REACTIONS. WILL MONITOR CLOSELY.
[2023-09-04 11:48] LABS: Hemoglobin 7.1 g/dL (13.5-17.5)
[2023-09-04 12:00] LABS: Hematocrit 20.3 % (37.0-53.0)
--- NOTE | 2023-09-04 12:00 | NUR ---
STRAIGHT CATH ATTEMPTED STRAIGHT CATH TO OBTAIN URINE SAMPLE FOR RANDOM URINE SODIUM. NO URINE IN BLADDER. CALL MADE TO DR. CHRISTIANSON TO NOTIFY AND ORDER RECEIVED TO WAIT AND SEE IF PATIENT IS ABLE TO URINATE THROUGHOUT THE DAY.
[2023-09-04 12:27] LABS: Bun/Creatinine Ratio 9.8 (12.0-20.0); Calcium, Blood 7.8 mg/dL (8.5-10.1); Creatinine, Blood 3.36 mg/dL (0.60-1.20)
--- NOTE | 2023-09-04 13:44 | NUR ---
LOW POTASSIUM CALL MADE TO DR. CHRISTIANSON TO NOTIFY OF BMP RESULTS OF POTASSIUM 3.0 AND SODIUM 126. ORDER RECEIVED FOR 1200ML FLUID RESTRICTION AND REPEAT BMP AT 1800.
--- NOTE | 2023-09-04 17:21 | NUR ---
Spoke with Primary RN Eli and discussed case. Eli reports specialists are reporting grim prognosis. Pt interested in completing advanced directive. Pt sitting in chair upon arrival. Pt confirms interest in completing AD and knows who he wants to appoint as healthcare representatives. He reports family will be here on Thursday and would like assistance with completing AD. He reports his biological mother will be here tomorrow but they have a strained relationship and has no intention of including her in AD. Assessed Pt's understanding of prognosis and treatments available for him. Pt reports his understanding that he needs to remain sober for 6 months and then can go on transplant list. He reports being sober for 2 months now. He also reports dialysis is planned. Continued therapeutic listening. Pt agreeable for Palliative Care to F/U on Thursday to assist with AD. Palliative Care will remain available
--- NOTE | 2023-09-04 18:11 | NUR ---
SHIFT SUMMARY PATIENT WAS UP TO CHAIR FOR DINNER, BUT AFTER VOMITING EPISODE WITH DINNER REQUESTED TO GO BACK TO BED. PATIENT REQUIRED ONE DOSE OF FENTANYL FOR RT FLANK PAIN. NO URINE OUTPUT THIS SHIFT. DR. CHRISTIANSON NOTIFIED. LEVOPHED TITRATED UP TO 4MCG/MIN. OCTREOTIDE STILL INF. NO BM THIS SHIFT. MIDODRINE DISCONTINUED. NO OTHER CHANGES THIS SHIFT.
[2023-09-04 18:37] LABS: Bun/Creatinine Ratio 9.6 (12.0-20.0); Calcium, Blood 8.2 mg/dL (8.5-10.1); Creatinine, Blood 3.54 mg/dL (0.60-1.20); Potassium, Blood 3.1 mmol/L (3.5-5.5)
[2023-09-05] VITALS (91 sets, daily range): BP systolic 72–135; BP diastolic 45–77
[2023-09-05 03:44] LABS: BASOPHILS ABSOLUTE AUTO 0.04 K/mm3 (0.00-0.23); BASOPHILS PERCENT AUTO 0 % (0-2); EOSINOPHILS ABSOLUTE AUTO 0.15 K/mm3 (0.00-0.68); EOSINOPHILS PERCENT AUTO 1 % (0-6); Hemoglobin 7.6 g/dL (13.5-17.5); IMMATURE GRAN ABSOLUTE AUTO 0.09 K/mm3 (0.00-0.10); IMMATURE GRAN PERCENT AUTO 1 % (0-1); LYMPHOCYTES ABSOLUTE AUTO 1.58 K/mm3 (0.84-5.20); LYMPHOCYTES PERCENT AUTO 14 % (21-46); MONOCYTES ABSOLUTE AUTO 1.11 K/mm3 (0.16-1.47); MONOCYTES PERCENT AUTO 10 % (4-13); Mean Platelet Volume 9.9 fL (9.1-12.4); NEUTROPHILS ABSOLUTE AUTO 8.44 K/mm3 (1.96-9.15); NEUTROPHILS PERCENT AUTO 74 % (41-73); Platelet Count 71 K/mm3 (150-400); White Blood Cell Count 11.41 K/mm3 (4.00-11.30)
[2023-09-05 03:45] LABS: Hematocrit 21.6 % (37.0-53.0); Mean Corpuscular HGB 33.3 pg (26.0-34.0); Mean Corpuscular HGB Conc 35.2 g/dL (31.5-36.5); Mean Corpuscular Volume 95 fL (80-100); Red Blood Cell Count 2.28 M/mm3 (4.30-5.90)
[2023-09-05 03:59] LABS: International Normalized Ratio 2.2; Prothrombin Time Results 22.1 Sec (9.7-11.5)
[2023-09-05 04:21] LABS: Albumin, Blood 3.3 g/dL (3.4-5.0); Albumin/Globulin Ratio 1.5 (0.8-1.8); Bilirubin, Total 31.9 mg/dL (0.1-1.0); Bun/Creatinine Ratio 8.8 (12.0-20.0); Calcium, Blood 8.3 mg/dL (8.5-10.1); Creatinine, Blood 3.75 mg/dL (0.60-1.20); Globulin, Blood 2.2 g/dL (2.2-4.0); Potassium, Blood 3.3 mmol/L (3.5-5.5); Total Protein, Blood 5.5 g/dL (6.4-8.2)
--- NOTE | 2023-09-05 06:33 | NUR ---
SHIFT SUMMARY: NO ACUTE CHANGES T/O THE SHIFT. LEVOPHED TITRATED PER MD ORDERS TO MAP>[address] WYLIE. PT MEDICATED FOR PAIN T/O THE NIGHT WITH GOOD EFFECT. PT STATES HIS ABD IS PAINFUL AND HE FEELS "FULL". SEE DOCUMENTED VS AND ASSESSMENT. AM LABS REVIEWED. PT UP TO TOILET THIS AM, BRIGHT RED BLOOD NOTED IN STOOL, PT HAS DOCUMENTED HEMORROIDS. PT OOB SBA TO RECLINER. CALL LIGHT IN REACH. WILL CONTINUE TO MONITOR AND GIVE REPORT TO AM RN.
--- NOTE | 2023-09-05 07:42 | NUR ---
SHIFT ASSESSMENT ASSUMED CARE OF @ 0700, BEDSIDE REPORT FROM NOC NURSE. PT A&OX4, UP IN ROOM TRANSFERRING FROM CHAIR TO BED. REPORTS SEVERE ABDOMINAL PAIN AND TROUBLE TAKING DEEP BREATHS DUE TO ASCITES, MEDICATED c PRN FENTANYL. RR OF 16 c O2 SATS >95% ON RA. PT QUITE EDEMATOUS, MUCH WORSE THAN 4 DAYS AGO WHEN THIS NURSE CARED FOR PT. LEVOPHED GTT INFUSING @ 3MCG/MIN WITH MAP GOAL OF 70. PT STATES NO URGE TO VOID AND ADAMANTLY REFUSED CATHETER.
--- NOTE | 2023-09-05 14:24 | NUR ---
pt Having discussion with family on future needs. They are completing power of commercial litigation attorney.Advised can have notary on thursday. They asked several questions about hospice care and how to obtain that care. Reviewed pleurex video and gave pt and family information. Discussed hopsice care and staff. Pt does not have a yanni and does not want chaplian service. Pt having some twinges and discomfort of abdomen. review ed with nursing. May be some overt nausea type pain. will place hospice consult and review later in day with family they were having a discussion.
--- NOTE | 2023-09-05 18:51 | NUR ---
SHIFT SUMMARY PT REMAINS A&OX4. HAS NOT PRODUCED ANY URINE TODAY, NO BM. HAS SMALL APPETITE BUT NOT LIKING THE FOOD SERVED. PARACENTESIS COMPLETE, 5.5L OUT. DISCUSSED HOSPICE CARE WITH PATIENT, POLST FORM COMPLETE. OTHERWISE NO ACUTE CHANGES IN PT CONDITION TODAY.
--- NOTE | 2023-09-05 20:30 | NUR ---
ASSUMED CARE OF PT AT 1900. REPORT RECEIVED. PT PRESENTS IN BED. ENGAGED WITH FAMILY IN CONVERSATION. PT VOICES NO COMPLAINTS AT THIS TIME. DID HAVE HIS MEAL TRAY FROM DINNER THAT HE HAD NOT STARTED TO EAT. SETUP TRAY FOR PT. DISCUSSED FLUID RESTRICTIONS. DISCUSSED PLAN OF CARE FOR THIS NIGHT. WILL REVIEW CHART AND PLAN OF CARE FOR THIS PT.
--- NOTE | 2023-09-05 23:05 | NUR ---
ASSISTED PT OOB TO STAND AT SIDE OF BED TO ATTEMPT URINATION. PT ABLE TO VOID 150 ML BROWN COLORED URINE. IN PURSUIT OF OUT OF BED, ORTHOSTATIC BLOOD PRESSURES DONE AND CHARTED. NO SIGNIFICANT CHANGES TO NOTE. PT HAS COMPLETED APPROX 75 PERCENT OF HIS DINNER. HAVE MEDICATED PT ONCE WITH 5 MG OXYCODONE, AND LATER WITH 25 MCG'S FENTANYL FOR ABDOMINAL PAIN. PT HAS NO FURTHER COMPLAINTS. IS ABLE TO SIT UP AT SIDE OF BED, AND GET HIMSELF BACK INTO BED INDEPENDELY. WILL CONTINUE TO MONITOR.
[2023-09-06] VITALS (29 sets, daily range): BP systolic 90–127; BP diastolic 52–89
[2023-09-06 03:32] LABS: Hemoglobin 7.5 g/dL (13.5-17.5); Mean Platelet Volume 10.7 fL (9.1-12.4); Platelet Count 56 K/mm3 (150-400); White Blood Cell Count 8.75 K/mm3 (4.00-11.30)
[2023-09-06 03:33] LABS: Hematocrit 21.6 % (37.0-53.0); Mean Corpuscular HGB 33.8 pg (26.0-34.0); Mean Corpuscular HGB Conc 34.7 g/dL (31.5-36.5); Mean Corpuscular Volume 97 fL (80-100); Red Blood Cell Count 2.22 M/mm3 (4.30-5.90)
[2023-09-06 04:13] LABS: Magnesium, Blood 2.2 mg/dL (1.6-2.4)
[2023-09-06 04:36] LABS: Albumin, Blood 3.3 g/dL (3.4-5.0); Albumin/Globulin Ratio 1.8 (0.8-1.8); Bilirubin, Direct 19.5 mg/dL (0.0-0.3); Bilirubin, Indirect 9.8 mg/dL (0.1-0.7); Bilirubin, Total 29.3 mg/dL (0.1-1.0); Bun/Creatinine Ratio 8.5 (12.0-20.0); Calcium, Blood 8.5 mg/dL (8.5-10.1); Creatinine, Blood 4.25 mg/dL (0.60-1.20); Globulin, Blood 1.8 g/dL (2.2-4.0); Phosphorus, Blood 4.2 mg/dL (2.5-4.9); Potassium, Blood 3.7 mmol/L (3.5-5.5); Total Protein, Blood 5.1 g/dL (6.4-8.2)
--- NOTE | 2023-09-06 06:21 | NUR ---
HAVE TITRATED LEVOPHED TO OFF THIS MORNING. GOING FROM 1 MCG/KG/MIN TO OFF AT 0600 THIS AM. PENDING PT. NO S/S BLEEDING TO NOTE. NO STOOLS THIS NIGHT. HAS DONE WELL TO MAINTAIN HIS FLUID RESTRICTION. PT TO BE MEDICATED IN A MOMENT WITH 5 MG OXYCODONE FOR ABDOMINAL PAIN. WILL CONTINUE TO MONITOR PT, AND WILL REPORT OFF TO ONCOMING RN.
--- NOTE | 2023-09-06 09:00 | NUR ---
SHIFT ASSESSMENT ASSUMED CARE OF PT @ 0700, BEDSIDE REPORT RECEIVED FROM GABRIELA KURTZ. PT ALERT AND ORIENTED, FOLLOWING COMMANDS, AMBULATES TO BSC WITH SBA. PT IS HAVING MORE MOMENTS OF DISORIENTATION BUT EASILY REDIRECTABLE, AMMONIA ELEVATED & STARTING LACTULOSE. LEVOPHED REMAINS OFF, BP STABLE. PT CONTINUES TO C/O RUQ ABD PAIN, MEDICATING WITH PRN PAIN MEDS. TOLERATING PO INTAKE, VERY PICKY WITH MEALS. PT IS PRODUCING A SCANT AMNT OF TEA COLORED URINE, NO BM. PLAN TO TRANSFER TO PCU/ MEDICAL TODAY.
--- NOTE | 2023-09-06 12:50 | NUR ---
TRANSFER PT TAKEN TO MEDICAL FLOOR ROOM 346. REPORT GIVEN TO JERARDO VELASCO.
--- NOTE | 2023-09-06 13:05 | NUR ---
1250 TO FLOOR VIA W/C, REPORT FROM QUIANA AT 1218, FAMILY AT BEDSIDE WITH PATIENT, HELPFUL WITH CARE
[2023-09-07 02:36] VITALS: BP 115/70
--- NOTE | 2023-09-07 04:09 | NUR ---
SHIFT SUMMARY PATIENT HAD NO ACUTE CHANGES. AXOX 3 WITH CONFUSION AT TIMES. JAUNDICE APPEARANCE. ONE ASSIST TO BR. STAYED IN CHAIR T/O SHIFT. POWERGLIDE RU ARM INTACT. PIV REMAINS INTACT. SANDOSTATIN INFUSING @ 25 mL/HR. DENIES CHEST PAIN AND SOB. REPORTED ABDOMEN PAIN AND OXYCODONE 5 MG GIVEN PER EMAR. REPORTED NAUSEOUS X 2 AND PO PHENERGAN 25 MG GIVEN ALTERNATED WITH IV ZOFRAN. VSS/AFEBRILE. FAMILY PRESENT AT START OF SHIFT. CALL LIGHT IN REACH. BED IN LOWEST POSITION. WILL CONTINUE TO MONITOR UNTIL DAY SHIFT NURSE ASSUMES CARE.
[2023-09-07 07:43] VITALS: BP 113/63
[2023-09-07 07:46] LABS: Albumin, Blood 3.6 g/dL (3.4-5.0); Albumin/Globulin Ratio 1.6 (0.8-1.8); Bilirubin, Total 36.2 mg/dL (0.1-1.0); Bun/Creatinine Ratio 8.9 (12.0-20.0); Creatinine, Blood 4.7 mg/dL (0.60-1.20); Globulin, Blood 2.3 g/dL (2.2-4.0); Potassium, Blood 4.3 mmol/L (3.5-5.5); Total Protein, Blood 5.9 g/dL (6.4-8.2)
[2023-09-07 09:37] LABS: BASOPHILS ABSOLUTE AUTO 0.04 K/mm3 (0.00-0.23); BASOPHILS PERCENT AUTO 0 % (0-2); EOSINOPHILS ABSOLUTE AUTO 0.08 K/mm3 (0.00-0.68); EOSINOPHILS PERCENT AUTO 1 % (0-6); Hemoglobin 8.9 g/dL (13.5-17.5); IMMATURE GRAN ABSOLUTE AUTO 0.17 K/mm3 (0.00-0.10); IMMATURE GRAN PERCENT AUTO 1 % (0-1); LYMPHOCYTES ABSOLUTE AUTO 1.34 K/mm3 (0.84-5.20); LYMPHOCYTES PERCENT AUTO 11 % (21-46); MONOCYTES ABSOLUTE AUTO 1.19 K/mm3 (0.16-1.47); MONOCYTES PERCENT AUTO 10 % (4-13); Mean Platelet Volume 10.3 fL (9.1-12.4); NEUTROPHILS ABSOLUTE AUTO 9.53 K/mm3 (1.96-9.15); NEUTROPHILS PERCENT AUTO 77 % (41-73); Platelet Count 62 K/mm3 (150-400); White Blood Cell Count 12.35 K/mm3 (4.00-11.30)
[2023-09-07 09:52] LABS: International Normalized Ratio 2.14; Prothrombin Time Results 21.5 Sec (9.7-11.5)
[2023-09-07 10:12] LABS: Hematocrit 25.7 % (37.0-53.0); Mean Corpuscular HGB Conc 34.6 g/dL (31.5-36.5); Mean Corpuscular Volume 98 fL (80-100); Red Blood Cell Count 2.62 M/mm3 (4.30-5.90)
[2023-09-07 12:01] VITALS: BP 112/62
[2023-09-07 16:19] VITALS: BP 108/55
[2023-09-07 19:22] VITALS: BP 118/60
[2023-09-08 02:38] VITALS: BP 109/66
--- NOTE | 2023-09-08 03:49 | NUR ---
SHIFT SUMMARY ADMITTED FOR ALCOHOL HEPATITIS. DNR CODE. IV SANDSTATIN INFUSING. LACTULOSE IS SCHEDULED. HE WAS DROWSY THROUGHOUT SHIFT. HE IS ANURIC. HX OF GI BLEED, PARACENTESIS, PRBC INFUSION. DR. STAHL IS GI CONSULT. HE IS ON RA. HE IS JAUNDICED. NO OUTPUT THIS SHIFT.
[2023-09-08 07:44] VITALS: BP 113/60
[2023-09-08 14:15] LABS: Hemoglobin 8.8 g/dL (13.5-17.5); Mean Platelet Volume 10.1 fL (9.1-12.4); Platelet Count 65 K/mm3 (150-400); White Blood Cell Count 14.41 K/mm3 (4.00-11.30)
[2023-09-08 14:16] LABS: Hematocrit 26.1 % (37.0-53.0); Mean Corpuscular HGB 33.2 pg (26.0-34.0); Mean Corpuscular HGB Conc 33.7 g/dL (31.5-36.5); Mean Corpuscular Volume 99 fL (80-100); Red Blood Cell Count 2.65 M/mm3 (4.30-5.90)
[2023-09-08 14:20] LABS: International Normalized Ratio 2.36; Prothrombin Time Results 23.6 Sec (9.7-11.5)
[2023-09-08 14:40] LABS: Albumin/Globulin Ratio 1.1 (0.8-1.8); Bilirubin, Total 35.5 mg/dL (0.1-1.0); Bun/Creatinine Ratio 9.7 (12.0-20.0); Calcium, Blood 8.8 mg/dL (8.5-10.1); Creatinine, Blood 5.68 mg/dL (0.60-1.20); Globulin, Blood 2.7 g/dL (2.2-4.0); Potassium, Blood 4.2 mmol/L (3.5-5.5); Total Protein, Blood 5.7 g/dL (6.4-8.2)
[2023-09-08 15:53] VITALS: BP 110/66
--- NOTE | 2023-09-08 17:12 | NUR ---
Spoke with Dr Rodriguez and discussed case. Multiple visits today. Towards the end of the day, joint visit with Dr Frazier, Dr Sifuentes, and this PC RN. Physicians discuss prognosis and recommendations. Therapeutic listening and questions answered. Comfort care discussed with family reporting being in agreement with comfort care. Gentle education on comfort care philosophy with V/U made by family. Family expresses appreciation and report no other concerns at this time. Placed comfort care order, comfort care order set, D/C maintenance medications per V/O from Dr Frazier. Pt appears to be declining quickly and may benefit from remaining in the hospital. Spoke with Primary RN Rell and discussed case. Palliative Care will remain availabe for symptom management and supportive visits.
--- NOTE | 2023-09-08 18:34 | NUR ---
SHIFT SUMMARY PT ALERT AT START OF SHIFT BUT WAS USING INCOHERENT SPEACH. PT WAS UNABLE TO FOLLOW COMMANDS. PT REFUSED MEDICATIONS AND WAS RESISTANT TO CARE. PT UNABLE TO STAND TO GET INTO BED SO LIFT WAS USED TO GET PT BACK TO BED. PT RESTELSS AND MOANING IN AM. MEDICATED PER EMAR AND PT APPERAED MUCH MORE RELAXED. PT BECAME MORE LETHARGIC AND UNRESPONSIVE DAY WENT ON. DR QIU, DR HUYNH, AND ALESIA NURLPS IN TO TALK WITH FAMILY IN EVENING. DECISION WAS MADE TO PLACE PT ON COMFORT CARE. FAMILY HAS BEEN AT BEDSIDE T/O DAY. BED IN LOWEST POSITION AND CALL LIGHT IN REACH.
--- NOTE | 2023-09-09 07:09 | NUR ---
SHIFT SUMMARY NOC PT ON COMFORT CARE. PT RESPONDS TO VERBAL/TACTILE STIMULI. PT HAS FAMILY IN ROOM AROUND THE CLOCK. PT IS SEVERELY JAUNDICED T/O. PT HAS HAD NO ORAL INTAKE SO FAR DURING SHIFT AND SCANT OUTPUT. PT HAS BEEN MEDICATED WITH 10MG ROXANOL FOR AIR HUNGER/PAIN X 1 SO FAR WITH DESIRED EFFECT. PT HAS PG IN MAGDY AND 2 PERIPHERAL IV IN SUZETTE/LAC FOR COMFORT CARE RX. PT IS CURRENTLY RESTING WITH BED IN LOWEST POSITION, CALL LIGHT WITHIN REACH, AND FAMILY AT BEDSIDE.
--- NOTE | 2023-09-09 09:02 | NUR ---
Pt resting in bed with eyes closed. No S/Sx of distress noted. No concerns from bedside nursing staff at this time. Will remain available as needed.
--- NOTE | 2023-09-09 10:20 | NUR ---
Comfort Care Visit Pt resting in bed with his eyes closed upon arrival. Primary RN and PHOTOGRAPHER [employer] providing care for Pt. Pt moans when repositioned other rodriges not responding. Recommendations made to consider pre-medicating Pt prior to repositioning and Pt care. Palliative Care will remain available
--- NOTE | 2023-09-09 19:48 | NUR ---
SHIFT SUMMARY PT UNRESPONSIVE BUT WILL RESPOND WITH SOUNDS WHEN CHANGING AND TURNING. PT'S BREATHING WAS EVEN AND UNLABORED AT START OF SHIFT AND LUNG SOUNDS WHERE CLEAR. AT END OF SHIFT PT HAD OCCASIONAL PAUSES IN BREATHING AND LUNG SOUNDS WERE COURSE. PT MEDICATED PER EMAR FOR COMFORT. FAMILY AT BEDSIDE T/O DAY. FAMILY HAS UPS AND DOWNS WITH EMOTIONS AND LOTS OF QUESTIONS. FAMILY IS VERY ATTENTIVE WITH PT'S CARE. BED IN LOWEST POSITION AND REPORT GIVEN TO ONCOMING NURSE.
--- NOTE | 2023-09-10 05:42 | NUR ---
SHIFT SUMMARY SHAHNAZ IS SOLMNOLENT, CHANGE OF BREATHING WITH REPOSITIONING. MEDICATED FOR COMFORT PER EMAR. FAMILY AT BEDSIDE T/O NOC. HAD NO URINE OUTPUT, NO BM THIS SHIFT. BED IN LOWEST POSITION. FIRE SAFETY CHECKS COMPLETED
--- NOTE | 2023-09-10 10:13 | NUR ---
Comfort Care Visit Visited earlier this AM. Pt resting in bed with his eyes closed and is non responsive. Mild secretions noted. Pt appears comfortable with no S/S of distress at this time. Family in medical floor lobby. Offered therapeutic listening as family expresses concerns. Family expresses appreciation and reports no other concerns at this time. Relayed concerns to Pt's Primary RN January. Palliative Care will remain available
--- NOTE | 2023-09-10 19:51 | NUR ---
SHIFT SUMMARY PATIENT SOMNOLENT FOR ENTIRE SHIFT, HE HAS INCREASE IN ORAL MUCUS SECRETIONS, ATIVAN GIVEN EVERY 2 HOURS WITH ALTERNATING FENTANYL AND IV MORPHINE AND ATROPINE. PATIENT FACE SCORE 1-0, AIR HUNGER PRESENT. PATIENT TURNED EVERY 2 HOURS BED IN LOW POSITION, FAMILY PRESENT DURING DAY EXCEPT DURING PATIENT MEDICATION OR REPOSITIONING.
--- NOTE | 2023-09-11 02:30 | NUR ---
NOTE COMFORT CARE PT, PT AT 0200 PER FAMILY. OFFICIAL TIME OF 211, VERIFIED WITH NEHA CARBAJAL RN. FAMILY AT BEDSIDE AT TIME OF PASSING. FAMILY STATES HOME WILL BE [facility], ROOM DESIGNER NOTIFIED OF THIS. MD AWARE OF PT PASSING. POST MORTEM CARE TO PRESUME AFTER PT'S FAMILY LEAVES BEDSIDE.
--- NOTE | 2023-09-11 07:57 | NUR ---
DISCHARGE: PT TOD 211 ON 09-11-23. MORTUARY TRANSPORT ARRIVED @0745 FOR PT. IV IN LWR AND PG IN MAGDY REMOVED W/O COMPLICATIONS. TRANSPORT NAME ALESIA CHIANG.
== END 2023-09-11 07:48 | DRG 432 ==
LOC: ER 14:03 → ICUE 17:49 → PCU 17:49 → MEDS 17:49 → ICUE 08-31 12:36 → PCU 09-02 15:15 → ICUE 09-04 05:28 → MEDS 09-06 12:47
PROVIDERS: Emergency Medicine; Family Medicine; Hospitalist; Internal Medicine; Internal Medicine Gastroenterology; ADMIT Internal Medicine
PROC: HZ2ZZZZ Detoxification Services for Substance Abuse Treatment (ICD-10-PCS; 2023-08-30)
PROC: 0W9G3ZZ Drainage of Peritoneal Cavity, Percutaneous Approach (ICD-10-PCS; principal; 2023-08-31)
PROC: 30233N1 Transfusion of Nonautologous Red Blood Cells into Peripheral Vein, Percutaneous Approach (ICD-10-PCS; 2023-08-31)
PROC: 0DBL8ZZ Excision of Transverse Colon, Via Natural or Artificial Opening Endoscopic (ICD-10-PCS; 2023-09-03)
PROC: 3E033XZ Introduction of Vasopressor into Peripheral Vein, Percutaneous Approach (ICD-10-PCS; 2023-09-04)
PROC: 0W9G3ZZ Drainage of Peritoneal Cavity, Percutaneous Approach (ICD-10-PCS; 2023-09-05)
DX: K70.11 Alcoholic hepatitis with ascites (principal); K72.01 Acute and subacute hepatic failure with coma; K76.7 Hepatorenal syndrome; K72.11 Chronic hepatic failure with coma; N17.0 Acute kidney failure with tubular necrosis; D68.9 Coagulation defect, unspecified; K76.6 Portal hypertension; E87.20 Acidosis, unspecified; E87.1 Hypo-osmolality and hyponatremia; D62 Acute posthemorrhagic anemia; Z51.5 Encounter for palliative care; Z66 Do not resuscitate; K70.31 Alcoholic cirrhosis of liver with ascites; K63.89 Other specified diseases of intestine; K64.8 Other hemorrhoids; K64.4 Residual hemorrhoidal skin tags; D52.9 Folate deficiency anemia, unspecified; E87.6 Hypokalemia; E88.09 Other disorders of plasma-protein metabolism, not elsewhere classified; G62.9 Polyneuropathy, unspecified; F10.21 Alcohol dependence, in remission; K63.5 Polyp of colon; F17.210 Nicotine dependence, cigarettes, uncomplicated; D69.6 Thrombocytopenia, unspecified; E83.39 Other disorders of phosphorus metabolism; D72.829 Elevated white blood cell count, unspecified
CPT/HCPCS: 36415; 36430; 49083; 70450; 71045; 76705; 80048; 80053; 80069; 80074; 80076; 81001; 82042; 82105; 82140; 82248; 82607; 82728; 82746; 82947; 83540; 83550; 83605; 83690; 83735; 84100; 84300; 85014; 85018; 85025; 85027; 85610; 85730; 86850; 86900; 86901; 86923; 87070; 87075; 87205; 88305; 89051; 93005; 93010; 96374; 99285-25; A9270; C1751; C9113; J0696; J2060; J2250; J2270; J2354; J2405; J2704; J3010; J3411; J3480; J7040; J7050; J7060; P9016; P9047

== ENCOUNTER → 2023-08-30 | Outpatient (CLI) | payer OTHER ==
[2023-08-30 14:04] LABS: BASOPHILS ABSOLUTE AUTO 0.03 K/mm3 (0.00-0.23); BASOPHILS PERCENT AUTO 0 % (0-2); EOSINOPHILS ABSOLUTE AUTO 0.25 K/mm3 (0.00-0.68); EOSINOPHILS PERCENT AUTO 2 % (0-6); Hematocrit 22.1 % (37.0-53.0); Hemoglobin 7.8 g/dL (13.5-17.5); IMMATURE GRAN ABSOLUTE AUTO 0.23 K/mm3 (0.00-0.10); IMMATURE GRAN PERCENT AUTO 1 % (0-1); LYMPHOCYTES ABSOLUTE AUTO 2.27 K/mm3 (0.84-5.20); LYMPHOCYTES PERCENT AUTO 14 % (21-46); MONOCYTES ABSOLUTE AUTO 1.46 K/mm3 (0.16-1.47); MONOCYTES PERCENT AUTO 9 % (4-13); Mean Corpuscular HGB Conc 35.3 g/dL (31.5-36.5); Mean Corpuscular Volume 108 fL (80-100); Mean Platelet Volume 9.5 fL (9.1-12.4); NEUTROPHILS ABSOLUTE AUTO 12.49 K/mm3 (1.96-9.15); NEUTROPHILS PERCENT AUTO 75 % (41-73); NRBC ABSOLUTE 0.02 K/mm3 (0.00-0.02); NRBC Auto 0.1 /100 WBC (0.0-0.2); Platelet Count 141 K/mm3 (150-400); RDW Coefficient Variation 16.6 % (11.7-14.2); RDW Standard Deviation 65.5 fL (35.1-46.3); Red Blood Cell Count 2.05 M/mm3 (4.30-5.90); White Blood Cell Count 16.73 K/mm3 (4.00-11.30)
[2023-08-30 14:13] LABS: Albumin, Blood 1.8 g/dL (3.4-5.0); Albumin/Globulin Ratio 0.4 (0.8-1.8); Bilirubin, Total 19.5 mg/dL (0.1-1.0); Calcium, Blood 7.7 mg/dL (8.5-10.1); Creatinine, Blood 0.63 mg/dL (0.60-1.20); Globulin, Blood 4.6 g/dL (2.2-4.0); Magnesium, Blood 2.1 mg/dL (1.6-2.4); Potassium, Blood 2.7 mmol/L (3.5-5.5); Total Protein, Blood 6.4 g/dL (6.4-8.2)
[2023-08-30 14:43] LABS: International Normalized Ratio 1.69; Prothrombin Time Results 17.2 Sec (9.7-11.5)
== END ==
LOC: LAB SHORT 13:45 → LAB 13:45
PROVIDERS: Emergency Medicine
DX: R60.0 Localized edema (principal)
CPT/HCPCS: 80053; 82140; 83605; 83735; 85025; 85610; 85730; 87040